=== PATIENT | male | born 1970 | race Caucasian/White ===

== ENCOUNTER 2024-06-12 03:22 | Observation (INO) | payer BC ==
[2024-06-12] MEDS ORDERED: NALOXONE 0.4 MG/ML 1 ML VIAL IV PRN (04:59)
--- NOTE | 2024-06-12 04:59 | ED ---
Abdominal Pain HPI - General Chief Complaint: Abdominal Pain Stated Complaint: Abd pain Source: EMS Mode of arrival: EMS Limitations: no limitations - History of Present Illness Initial Comments: 53-year-old male presents as a transfer from [facility]. Had right lower quadrant pain since [address]. Appendix not visualized. Fat stranding in the right lower quadrant with minimal free fluid in the pelvis but no abscess or free air. Laboratory studies demonstrated a white blood cell count of 13.9. Patient received Toradol, DIlaudid and a liter of fluid at the other facility. Still grades his pain as 6 out of 10. Patient was sent here for surgical consult. - Related Data Home Medications Medication Instructions Recorded Confirmed Celecoxib [CeleBREX] 100 mg PO BID PRN 06/12/24 06/12/24 Gabapentin 300 mg PO HS 06/12/24 06/12/24 Metoprolol Tartrate 25 mg PO BID 06/12/24 06/12/24 Naproxen Sodium [Aleve] 220 mg PO DAILY PRN 06/12/24 06/12/24 Rosuvastatin [Crestor] 20 mg PO HS 06/12/24 06/12/24 Previous Rx's Medication Instructions Recorded Amoxic-Pot Clav 500-125 mg 1 tab PO Q12HR #6 tab 06/13/24 [Augmentin 500-125 mg] HYDROcodone/APAP 5-325MG [[place] 1 tab PO Q6HR PRN 3 Days #12 tab 06/13/24 5-325] Lactulose [Cephulac] 10 gm PO DAILY PRN #300 ml 06/13/24 Allergies Allergy/AdvReac Type Severity Reaction Status Date / Time ceftriaxone [From Rocephin] AdvReac chills & Verified 06/12/24 07:11 jarrod Review of Systems ROS Statement: Those systems with pertinent positive or pertinent negative responses have been documented in the HPI. ROS Other: All systems not noted in ROS Statement are negative. Past Medical History Past Medical History: Hyperlipidemia, Hypertension History of Any Multi-Drug Resistant Organisms: None Reported Past Surgical History: Orthopedic Surgery Additional Past Surgical History / Comment(s): Vasectomy Past Psychological History: No Psychological Hx Reported Smoking Status: Never smoker Past Alcohol Use History: Occasional Past Drug Use History: Marijuana - Past Family History Father Family Medical History: Congestive Heart Failure (CHF), COPD, Diabetes Mellitus Additional Family Medical History / Comment(s): cabbag Mother Family Medical History: Cancer Additional Family Medical History / Comment(s): colon cancer at age 53. General Exam Limitations: no limitations General appearance: alert, in no apparent distress Head exam: Present: atraumatic, normocephalic, normal inspection Eye exam: Present: normal appearance, PERRL, EOMI. Absent: scleral icterus, conjunctival injection, periorbital swelling ENT exam: Present: normal exam, mucous membranes moist Neck exam: Present: normal inspection. Absent: tenderness, meningismus, lymphadenopathy Respiratory exam: Present: normal lung sounds bilaterally. Absent: respiratory distress, wheezes, rales, rhonchi, stridor Cardiovascular Exam: Present: regular rate, normal rhythm, normal heart sounds. Absent: systolic murmur, diastolic murmur, rubs, gallop, clicks GI/Abdominal exam: Present: soft, tenderness (rlq), normal bowel sounds. Absent: distended, guarding, rebound, rigid Extremities exam: Present: normal inspection, full ROM, normal capillary refill. Absent: tenderness, pedal edema, joint swelling, calf tenderness Back exam: Present: normal inspection Neurological exam: Present: alert, oriented X3, CN II-XII intact Psychiatric exam: Present: normal affect, normal mood Skin exam: Present: warm, dry, intact, normal color. Absent: rash Course Vital Signs 06/12/24 06/12/24 06/12/24 03:24 04:00 05:21 Temperature 99.1 F Pulse Rate 115 H 110 H Respiratory 18 18 Rate Blood Pressure 131/78 131/80 O2 Sat by Pulse 97 98 96 Oximetry Medical Decision Making - Medical Decision Making Was pt. sent in by a medical professional or institution (, PA, C 13 CATAPULT OPERATOR, urgent care, hospital, or snf...) When possible be specific @ -Patient sent from [facility] Did you speak to anyone other than the patient for history (EMS, parent, family, police, friend...)? What history was obtained from this source @ -I spoke with [facility] physician who transferred the patient Did you review nursing and triage notes (agree or disagree)? Why? @ -I reviewed and agree with nursing and triage notes Were old charts reviewed (outside hosp., previous admission, EMS record, old EKG, old radiological studies, urgent care reports/EKG's, snf records)? Report findings @ -I reviewed charts from [facility] Differential Diagnosis (chest pain, altered mental status, abdominal pain women, abdominal pain men, vaginal bleeding, weakness, fever, dyspnea, syncope, headach e, dizziness, GI bleed, back pain, seizure, CVA, palpatations, mental health, musculoskeletal)? @ -Differential Abdominal Pain Men: Appendicitis, cholecystitis, diverticulosis, ischemic bowel, pancreatitis, hepatitis, UTI, gastroenteritis, AAA, incarcerated hernia, bowel obstruction, constipation, inflammatory bowel, hepatitis, peptic ulcer disease, splenic infarction, perforated viscus, testicular torsion, this is not meant to be an all-inclusive list EKG interpreted by me (3pts min.). @ -Not done X-rays interpreted by me (1pt min.). @ -None done CT interpreted by me (1pt min.). @ -None done U/S interpreted by me (1pt. min.). @ -None done What testing was considered but not performed or refused? (CT, X-rays, U/S, labs)? Why? @ -None What meds were considered but not given or refused? Why? @ -None Did you discuss the management of the patient with other professionals (professionals i.e. , PA, C 13 CATAPULT OPERATOR, lab, RT, psych nurse, geriatric social work professor, supervisor gluing, teacher, family preservation officer, shoe caser)? Give summary @ -Spoke with Dr. St who will admit the patient Was smoking cessation discussed for >3mins.? @ -No Was critical care preformed (if so, how long)? @ -No Were there social determinants of health that impacted care today? How? (Homelessness, low income, unemployed, alcoholism, drug addiction, transportation, low edu. Level, literacy, decrease access to med. care, residential, rehab)? @ -No Was there de-escalation of care discussed even if they declined (Discuss DNR or withdrawal of care, Hospice)? DNR status @ -No What co-morbidities impacted this encounter? (DM, HTN, Smoking, COPD, CAD, Cancer, CVA, ARF, Chemo, Hep., AIDS, mental health diagnosis, sleep apnea, morbid obesity)? @ -None Was patient admitted / discharged? Hospital course, mention meds given and route, prescriptions, significant lab abnormalities, going to OR and other pertinent info. @ -Upon arrival patient seen and evaluated in room 1. Thorough history and physical exam was performed. I did review the packet from [facility]. I spoke with Dr. St who agreed to admit the patient. I did give him a low-dose of pain medications and started him on antibiotics. Patient admitted to the hospital in stable condition Undiagnosed new problem with uncertain prognosis? @ -No Drug Therapy requiring intensive monitoring for toxicity (Heparin, Nitro, Insulin, Cardizem)? @ -No Were any procedures done? @ -No Diagnosis/symptom? @ -Acute right lower quadrant abdominal pain, acute leukocytosis, fat stranding right lower quadrant Acute, or Chronic, or Acute on Chronic? @ -Acute Uncomplicated (without systemic symptoms) or Complicated (systemic symptoms)? @ -Complicated Side effects of treatment? @ -No Exacerbation, Progression, or Severe Exacerbation? @ -No Poses a threat to life or bodily function? How? (Chest pain, USA, VA, pneumonia, PE, COPD, DKA, ARF, appy, cholecystitis, CVA, Diverticulitis, Homicidal, Suicidal, threat to staff... and all critical care pts) @ -No - Lab Data Result diagrams: 06/13/24 03:44 06/13/24 03:44 Disposition Clinical Impression: RLQ abdominal pain, Leukocytosis Disposition: ADMITTED IP TO THIS [facility] Condition: Stable Is patient prescribed a controlled substance at d/c from ED?: No Time of Disposition: 04:59 Decision to Admit Reason: Admit from EC Decision Date: 06/12/24 Decision Time: 04:59
[2024-06-12] MEDS: SODIUM CHLORIDE 0.9% 1,000 ML IV SCH (05:20)
[2024-06-12] MEDS: MORPHINE SULFATE 4 MG/ML SYRINGE IV PRN (06:15)
[2024-06-12] MEDS: ONDANSETRON 4 MG/2 ML VIAL IVP PRN ×2 (06:15→19:20)
[2024-06-12] MEDS: SODIUM CHLORIDE 0.9% 500 ML 500 ML IV ONE ×2 (10:45→13:27)
[2024-06-12] MEDS: PIPERACILLIN-TAZOBACTAM 3.375 GM in SODIUM CHLORIDE 0.9% 100 ML IVPB SCH (10:51)
[2024-06-12] MEDS: IOPAMIDOL CONTRAST (ORAL USE) VIAL PO PRN (10:52)
[2024-06-12 11:42] LABS: Basophils % (A) 0 %; Eosinophils % (A) 0 %; HCT 40.1 % (39.0-53.0); HGB 13.1 gm/dL (13.0-17.5); Lymphocytes # (A) 1.2 k/uL (1.0-4.8); Lymphocytes % (A) 9 %; MCH 30.4 pg (25.0-35.0); MCHC 32.8 g/dL (31.0-37.0); MCV 92.8 fL (80.0-100.0); Mean Platelet Volume 8.2; Monocytes # (A) 1.1 k/uL (0-1.0); Monocytes % (A) 8 %; Neutrophils # (A) 11.6 k/uL (1.3-7.7); Neutrophils % (A) 81 %; Platelet Count 251 k/uL (150-450); RBC 4.32 m/uL (4.30-5.90); RDW 13.4 % (11.5-15.5); WBC 14.3 k/uL (3.8-10.6)
--- NOTE | 2024-06-12 11:42 | P.GSHP ---
History of Present Illness H&P Date: 06/12/24 CHIEF COMPLAINT: Right lower quadrant abdominal pain HISTORY OF PRESENT ILLNESS: This is a 53-year-old male who presented to the hospital with complaints of right lower quadrant abdominal pain that started at 6 PM last night. Patient reports the pain was sharp and severe. He was having fevers. He did report some nausea. He went to [facility] and had a CT scan of the abdomen with IV contrast that reported appendix is not visualized. There is fat stranding in the right lower quadrant with minimal free fluid in the pelvis but no abscess or free air. She did have elevated white count. He was transferred from [facility] to be evaluated by surgeon. Patient continues to complain of pain mostly in the right lower quadrant and into the right side of the abdomen. He has been mildly tachycardic. Patient denies any prior abdominal surgeries. Denies any cardiac history. Patient does report having a colonoscopy about 3 years ago and reports that that colonoscopy was normal. Prior colonoscopies did have colon polyps. Family history includes mother with colon cancer. PAST MEDICAL HISTORY: See below PAST SURGICAL HISTORY: See below MEDICATIONS: See below ALLERGIES: See below SOCIAL HISTORY: No illicit drug use. REVIEW OF SYSTEMS: CONSTITUTIONAL: Denies fever or chills. HEENT: Denies blurred vision, vision changes, or eye pain. Denies hemoptysis CARDIOVASCULAR: Denies chest pain or pressure. RESPIRATORY: No shortness of breath. GASTROINTESTINAL: See HPI for pertinent findings HEMATOLOGIC: Denies bleeding disorders. GENITOURINARY: Denies any blood in urine or increased urinary frequency. SKIN: Denies pruitis. Denies rash. PHYSICAL EXAM: VITAL SIGNS: Reviewed GENERAL: Well-developed in no acute distress. HEENT: No sclera icterus. Extraocular movements grossly intact. Moist buccal mucosa. Head is atraumatic, normocephalic. No nasal drainage. ABDOMEN: Soft. Obese. Nondistended. Tenderness right lower quadrant and right side of abdomen NEUROLOGIC: Alert and oriented. Cranial nerves II through XII grossly intact. LABORATORY DATA: WBC at [facility] was 13 IMAGING: CT scan findings as stated above ASSESSMENT: 1. Right lower quadrant abdominal pain with CT scan evidence of fat stranding in the right lower quadrant and leukocytosis. Concerns for acute appendicitis PLAN: -CT scan abdomen pelvis with oral and IV contrast ordered for further evaluation of right lower quadrant abdominal pain -Follow-up on repeat labs -Zosyn added -Continue IV fluids -Normal saline 500 mL fluid bolus ordered before and after CAT scan due to CT scan being given with IV contrast -Keep patient n.p.o. for possible surgical intervention. Further recommendations forthcoming per surgeon Physician Journeyman Level Acoustic Analyst note has been reviewed by physician. Signing provider agrees with the documented findings, assessment, and plan of care. 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,bursitis bilateral knees History of Any Multi-Drug Resistant Organisms: None Reported Past Surgical History: Orthopedic Surgery Additional Past Surgical History / Comment(s): Vasectomy, 2 left rotator cuff r epair, 1 right rotator repair Past Anesthesia/Blood Transfusion Reactions: No Reported Reaction Past Psychological History: No Psychological Hx Reported Smoking Status: Never smoker Past Alcohol Use History: Occasional Past Drug Use History: Marijuana - Past Family History Father Family Medical History: Congestive Heart Failure (CHF), COPD, Diabetes Mellitus Additional Family Medical History / Comment(s): cabbag Mother Family Medical History: Cancer Additional Family Medical History / Comment(s): colon cancer at age 53. Medications and Allergies Home Medications Medication Instructions Recorded Confirmed Type Celecoxib [CeleBREX] 100 mg PO BID PRN 06/12/24 06/12/24 History Gabapentin 300 mg PO HS 06/12/24 06/12/24 History Metoprolol Tartrate 25 mg PO BID 06/12/24 06/12/24 History Naproxen Sodium [Aleve] 220 mg PO DAILY PRN 06/12/24 06/12/24 History Rosuvastatin [Crestor] 20 mg PO HS 06/12/24 06/12/24 History predniSONE [Deltasone] 40 mg PO DIRECTED 06/12/24 06/12/24 History Allergies Allergy/AdvReac Type Severity Reaction Status Date / Time ceftriaxone [From Rocephin] AdvReac chills & Verified 06/12/24 07:11 shaky Surgical - Exam Osteopathic Statement: *. No significant issues noted on an osteopathic structural exam other than those noted in the History and Physical/Consult. Vital Signs Temp Pulse Resp BP Pulse Ox 99.1 F 115 H 18 131/78 97 06/12/24 03:24 06/12/24 03:24 06/12/24 03:24 06/12/24 03:24 06/12/24 03:24 Results - Labs 06/12/24 11:03 06/12/24 11:03 Assessment and Plan Assessment: 53-year-old male with acute appendicitis nothing by mouth IV fluids pain control going to the operating room tonight Okay for regular diet after surgery
[2024-06-12 12:07] LABS: ALT 23 U/L (4-49); AST 15 U/L (17-59); African American GFR (CKD) >90 (>60 ml/min/1.73 sqM); Albumin 3.5 g/dL (3.5-5.0); Albumin/Globulin Ratio 1.4; Alkaline Phosphatase 44 U/L (38-126); Anion Gap 7 mmol/L; Blood Urea Nitrogen 22 mg/dL (9-20); Calcium 8.5 mg/dL (8.4-10.2); Carbon Dioxide 20 mmol/L (22-30); Chloride 110 mmol/L (98-107); Globulin 2.5 g/dL; Glucose 158 mg/dL (74-99); Magnesium 1.7 mg/dL (1.6-2.3); Non-African American GFR(CKD) >90 (>60 ml/min/1.73 sqM); Potassium 3.9 mmol/L (3.5-5.1); Sodium 137 mmol/L (137-145); Total Bilirubin 0.7 mg/dL (0.2-1.3)
--- NOTE | 2024-06-12 14:21 | CT ---
EXAMINATION TYPE: CT abdomen pelvis w con DATE OF EXAM: 06/12/2024 1:35 PM COMPARISON: None. CLINICAL INDICATION: Male, 53 years old with history of RLQ abdominal pain, RLQ pain TECHNIQUE: Axial images were obtained from above the diaphragm to the pubic rami in the axial plane a t 5 mm thick sections. Reconstructed images are reviewed on the computer in the coronal plane. CONTRAST: 100 mL of Isovue 300. Study performed with Oral Contrast DLP: 3187.5 mGycm, Automated exposure control for dose reduction was used. FINDINGS: Limited CT sections are obtained the lung bases. There is some right dependent lung base atelectasis .. CT ABDOMEN: Liver: There is moderate fatty infiltration liver. No discrete masses Spleen: Normal Pancreas: Normal Adrenal glands: The adrenal glands are normal. Gallbladder: Normal Kidneys: No masses are evident. No hydronephrosis is present. No cysts are present. Delayed images were obtained through the kidneys, which remain unremarkable. Aorta: Vascular calcification is within the aorta. Inferior vena cava: Normal. CT PELVIS: Scattered diverticuli within the sigmoid colon. No acute diverticulitis evident. There are loops of b owel which are incompletely distended or lack oral contrast limiting their evaluation. Appendix: The appendix appears nondilated. However, there may be some mild inflammatory changes in th e right lower quadrant and the appendix as well as adjacent cecum. No abscess formation is evident. N o free air is identified. Clinical management of any suspected appendicitis. Urinary bladder: Normal. Genitourinary structures: Prostate calcifications present. Mild hypertrophy may be present. Osseous structures: No suspicious lytic or sclerotic lesions. IMPRESSION: 1. Inflammatory changes within the mesentery in the right lower quadrant. This is adjacent to a norm al appearing caliber appendix. Clinical management suspected appendicitis. 2. Moderate fatty infiltration of the liver. 3. Mild dependent atelectasis right posterior lung base. 4. Diverticulosis without acute diverticulitis sigmoid colon. [facility], Workstation: [facility], 06/12/2024 2:19 PM
--- NOTE | 2024-06-12 15:45 | P.CONS ---
History of Present Illness - Reason for Consult Consult date: 06/12/24 Medical management abdominal pain concern for appendicitis - History of Present Illness This is a pleasant 53-year-old male who presented to [facility] from [facility] with intense severe abdominal pain in the right lower quadrant that came on abruptly. Patient did undergo CT there although appendix was not visua lized and was a poor study. Patient evaluated by general surgery and admitted to surgery today and repeat CT is ordered. Concerns for appendicitis and patient is currently NPO. Patient reports he follows with Dr. Islas in the outpatient setting with a past medical history of hypertension hyperlipidemia and reports to having bowel issues although denies any surgical interventions or recent surgeries. Patient white count is noted to be elevated at 14.3, hemoglobin is stable at 13.1, sodium 137, potassium 3.9, BUN is 22 with a creatinine of 0.63, magnesium 1.7, total bili 0.7. Patient was placed on supportive supplemental oxygen of 2 L and reports does not wear this at home although reports due to his significant abdominal pain having difficulty taking deep breaths and feels short of breath. Will provide incentive spirometer for pre and postsurgical interventions. Patient was also empirically started on antibiotics in the form of Zosyn per surgery with concerns of possible acute appendicitis. REVIEW OF SYSTEMS: CONSTITUTIONAL: No fever, no malaise, no fatigue. HEENT: No recent visual problems or hearing problems. Denied any sore throat. CARDIOVASCULAR: No chest pain, orthopnea, PND, no palpitations, no syncope. PULMONARY: Reports intermittent shortness of breath, no cough, no hemoptysis. GASTROINTESTINAL: No diarrhea, no nausea, no vomiting, reports severe abdominal pain in the right lower quadrant. NEUROLOGICAL: No headaches, no weakness, no numbness. HEMATOLOGICAL: Denies any bleeding or petechiae. GENITOURINARY: Denies any burning micturition, frequency, or urgency. MUSCULOSKELETAL/RHEUMATOLOGICAL: Denies any joint pain, swelling, or any muscle pain. ENDOCRINE: Denies any polyuria or polydipsia. The rest of the 14-point review of systems is negative. PHYSICAL EXAMINATION: GENERAL: The patient is alert and oriented x3, not in any acute distress. Well developed, appears older than stated age, morbidly obese HEENT: Pupils are round and equally reacting to light. EOMI. No scleral icterus. No conjunctival pallor. Normocephalic, atraumatic. No pharyngeal erythema. No thyromegaly. CARDIOVASCULAR: S1 and S2 muffled PULMONARY: Diminished breath sounds bilaterally otherwise chest is clear to auscultation, no wheezing or crackles. ABDOMEN: Soft, obese, tender, nondistended, normoactive bowel sounds. No palpable organomegaly. MUSCULOSKELETAL: No joint swelling or deformity. EXTREMITIES: No cyanosis, clubbing, or pedal edema. NEUROLOGICAL: Gross neurological examination did not reveal any focal deficits. SKIN: No rashes. Assessment: Abdominal pain with concerns of possible acute appendicitis Leukocytosis, secondary to above History of hypertension History of hyperlipidemia History of GERD History of degenerative joint disease in the back Occasional THC use Morbid obesity with a BMI of 46.2 GI prophylaxis DVT prophylaxis Full code Plan: Patient was sent here from [facility] with concerns of severe right lower quadrant abdominal pain for surgical evaluation. Patient admitted under surgery with concerns of possible acute appendicitis Patient remains n.p.o. and repeat CT is ordered showing inflammatory changes within the mesentery in the right lower quadrant adjacent to a normal-appearing caliber appendix clinical management suspected appendicitis, moderate fatty infiltration of the liver, mild dependent atelectasis right posterior lung place, Diverticulosis without acute diverticulitis Patient was started on Zosyn per surgery and recommend follow-up labs to monitor white count Patient reports has issues with constipation and bowel issues, will add as needed bowel regimen as well as scheduled. Currently n.p.o. The impression and plan of care has been dictated by Elizabeth Valenzuela, Nurse Practitioner as directed. Dr. Darío MD I have performed a history and examination and MDM of this patient, discussed the same with the dictator, and agree with the dictator's assessment and plan a s written ,documented as a scribe. Based on total visit time, I have performed more than 50% of the visit. 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,bursitis bilateral knees History of Any Multi-Drug Resistant Organisms: None Reported Past Surgical History: Orthopedic Surgery Additional Past Surgical History / Comment(s): Vasectomy, 2 left rotator cuff repair, 1 right rotator repair Past Anesthesia/Blood Transfusion Reactions: No Reported Reaction Past Psychological History: No Psychological Hx Reported Smoking Status: Never smoker Past Alcohol Use History: Occasional Past Drug Use History: Marijuana - Past Family History Father Family Medical History: Congestive Heart Failure (CHF), COPD, Diabetes Mellitus Additional Family Medical History / Comment(s): cabbag Mother Family Medical History: Cancer Additional Family Medical History / Comment(s): colon cancer at age 53. Medications and Allergies Home Medications Medication Instructions Recorded Confirmed Type Celecoxib [CeleBREX] 100 mg PO BID PRN 06/12/24 06/12/24 History Gabapentin 300 mg PO HS 06/12/24 06/12/24 History Metoprolol Tartrate 25 mg PO BID 06/12/24 06/12/24 History Naproxen Sodium [Aleve] 220 mg PO DAILY PRN 06/12/24 06/12/24 History Rosuvastatin [Crestor] 20 mg PO HS 06/12/24 06/12/24 History predniSONE [Deltasone] 40 mg PO DIRECTED 06/12/24 06/12/24 History Allergies Allergy/AdvReac Type Severity Reaction Status Date / Time ceftriaxone [From Rocephin] AdvReac chills & Verified 06/12/24 07:11 shaky Physical Exam Vitals: Vital Signs Temp Pulse Pulse Pulse Resp BP BP 06/12/24 07:48 06/12/24 07:05 98.7 F 110 H 17 145/89 06/12/24 06:05 98.8 F 106 H 18 139/86 06/12/24 05:21 110 H 18 131/80 06/12/24 04:00 06/12/24 03:24 99.1 F 115 H 18 131/78 Pulse Ox 06/12/24 07:48 96 06/12/24 07:05 96 06/12/24 06:05 95 06/12/24 05:21 96 06/12/24 04:00 98 06/12/24 03:24 97 Intake and Output 06/11/24 06/12/24 06/12/24 22:59 06:59 14:59 Other: Weight 158.757 kg Results CBC & Chem 7: 06/12/24 11:03 06/12/24 11:03
[2024-06-12] MEDS: FAMOTIDINE 20 MG/2 ML VIAL IV STA (19:20)
[2024-06-12] MEDS: DEXAMETHASONE SOD PHOSPHATE 4 MG/ML 1 ML VIAL IVP STA (19:20)
[2024-06-12] MEDS ORDERED: MIDAZOLAM 2 MG/2 ML VIAL ONE (19:40)
[2024-06-12] MEDS ORDERED: NEOSTIGMINE 1 MG/ML 10 ML VIAL ONE (19:40)
[2024-06-12] MEDS ORDERED: fentaNYL (PF) 50 MCG/ML 2 ML AMP ONE (19:40)
[2024-06-12] MEDS ORDERED: LABETALOL 5 MG/ML VIAL MDV ONE (19:40)
[2024-06-12] MEDS ORDERED: SUCCINYLCHOLINE CHLORIDE 200 MG/10 ML VIAL IV ONE (19:40)
[2024-06-12] MEDS ORDERED: PROPOFOL 10 MG/ML 20 ML VIAL IV ONE (19:40)
[2024-06-12] MEDS ORDERED: ROCURONIUM 10 MG/ML (5 ML VIAL) IV ONE (19:40)
[2024-06-12] MEDS ORDERED: GLYCOPYRROLATE 0.2 MG/ML 2 ML VIAL ONE (19:40)
[2024-06-12] MEDS ORDERED: KETOROLAC 30 MG/ML 1 ML VIAL ONE (19:40)
[2024-06-12] MEDS: IV FLUID CONTINUATION 1,000 ML IV ONE (19:42)
[2024-06-12] MEDS: LACTATED RINGERS 1,000 ML IV ONE ×2 (19:50→20:28)
[2024-06-12] MEDS: BUPIVACAINE (PF) 0.25% 30 ML VIAL SQ ONE (20:03)
--- NOTE | 2024-06-12 21:59 | P.OP ---
Date of Procedure: 06/12/24 Preoperative Diagnosis: appendicitis Postoperative Diagnosis: appendicitis Procedure(s) Performed: travel specialist scopic appendectomy Anesthesia: SOFYA Surgeon: Tom [facility] Pathology: other (appendix) Condition: stable Disposition: PACU Indications for Procedure: appendicitis Operative Findings: by stranding the significant amount of edema with inflamed appendix Description of Procedure: patient was brought to the operating suite where he was cleaned and draped in sterile fashion a timeout was performed and everyone agreed with the information sided. Next incision was made in the left upper quadrant with the #15 blade and a 5 mm Visiport was used to gain access into the abdomen. 2 more working ports were placed one in the infraumbilical area and one in the suprapubic area. We placed the patient in Trendelenburg with right side up. We encountered a large amount of fat which was very hard to see the colon and appendix. After manipulation of the colon we were able to see the appendix which was dissected free with blunt dissection and then grasped with a grasper lifted and a LigaSure device with the used to take down the meso Once this was freed the appendix was then grasped and resected using a 45 Endo SILVIA purple stapler. The staple was inspected and no bleeding was observed. This was placed in Endo Catch bag and removed out of the abdomen via the umbilical incision. The incisions were then closed using 4-0 Vicryl suture in interrupted fashion. Patient was then transported to PACU in stable conditionappendix.
[2024-06-12] MEDS: METOPROLOL TARTRATE 25 MG TAB PO SCH (23:40)
[2024-06-12] MEDS: PANTOPRAZOLE 40 MG/10 ML VIAL IVP SCH (23:40)
[2024-06-13] MEDS: ACETAMINOPHEN TAB 325 MG TAB PO PRN (08:44)
[2024-06-13 09:13] LABS: Basophils # (A) 0.03 X 10*3/uL (0.00-0.10); Basophils % (A) 0.2 %; Eosinophils # (A) 0 X 10*3/uL (0.04-0.35); Eosinophils % (A) 0 %; HCT 39.1 % (39.6-50.0); HGB 12.6 g/dL (13.0-17.0); Lymphocytes # (A) 0.67 X 10*3/uL (0.90-5.00); MCH 30.3 pg (27.0-32.0); MCHC 32.2 g/dL (32.0-37.0); Mean Platelet Volume 10.9 FL (9.5-12.2); Monocytes # (A) 0.92 X 10*3/uL (0.20-1.00); Monocytes % (A) 6.9 %; NRBC Per 100 WBC 0 X 10*3/uL (0.00-0.01); Neutrophils # (A) 11.67 X 10*3/uL (1.80-7.70); Neutrophils % (A) 87.5 %; Platelet Count 224 X 10*3/uL (140-440); RBC 4.16 X 10*6/uL (4.40-5.60); RDW 13.5 % (11.5-14.5); WBC 13.35 X 10*3/uL (4.50-10.00)
[2024-06-13 09:33] LABS: BUN/Creat Ratio 18.17 Ratio (12.00-20.00); Blood Urea Nitrogen 10.9 mg/dL (9.0-27.0); Calcium 8.5 mg/dL (8.7-10.3); Carbon Dioxide 20.7 mmol/L (21.6-31.8); Chloride 105 mmol/L (96-109); Glucose 196 mg/dL (70-110); Potassium 4.4 mmol/L (3.5-5.5); Sodium 135 mmol/L (135-145)
[2024-06-13] MEDS: polyethylene glycoL 3350 17 GM POWD.PACK PO STA (11:10)
[2024-06-13] MEDS: BENZOCAINE/MENTHOL LOZENG 1 EACH LOZENGE MUCOUS MEM PRN (11:51)
[2024-06-13] MEDS: LACTULOSE 20 GM/30 ML CUP PO SCH (12:51)
[2024-06-13] MEDS: SENNOSIDES 8.6 MG TAB PO SCH (12:51)
--- NOTE | 2024-06-13 13:12 | P.DS ---
Providers Date of admission: 06/12/24 05:01 Expected date of discharge: 06/13/24 Attending physician: Will St DO Consults: 06/12/24 04:59 Consult Physician Urgent Consulting Provider: Sidra Gonzalez Consult Reason/Comments: rlq pain, leukocytosis Do you want consulting provider notified?: Yes Primary care physician: Dar Islas MD Hospital Course: Discharge diagnosis 1. Acute appendicitis Hospital course This is a 53-year-old male transfer from [facility] with right lower quadrant abdominal pain. Patient was found to have evidence of acute append icitis. Patient is status post laparoscopic appendectomy. Patient tolerated surgery well. His pain is controlled. He is tolerating diet. He is afebrile. He has been up and ambulating. He is having flatus. White count is trending down. He is stable for discharge. Please refer to chart for any further details. Physician Licensed Direct Entry Midwife note has been reviewed by physician. Signing provider agrees with the documented findings, assessment, and plan of care. Attestation Patient seen and examined at bedside. Doing well since his surgery. He is postop day #1 laparoscopic appendectomy. He is tolerating diet. States pain is well-controlled. He is stable for discharge from surgical perspective. Will discharge with oral antibiotics and pain control. May Lr DO Patient Condition at Discharge: Stable Plan - Discharge Summary New Discharge Prescriptions: New Amoxic-Pot Clav 500-125 mg [Augmentin 500-125 mg] 1 tab PO Q12HR #6 tab HYDROcodone/APAP 5-325MG [[place] 5-325] 1 tab PO Q6HR PRN 3 Days #12 tab PRN Reason: Pain Lactulose [Cephulac] 10 gm PO DAILY PRN #300 ml PRN Reason: Constipation Continue Rosuvastatin [Crestor] 20 mg PO HS Gabapentin 300 mg PO HS Naproxen Sodium [Aleve] 220 mg PO DAILY PRN PRN Reason: Pain Celecoxib [CeleBREX] 100 mg PO BID PRN PRN Reason: Pain Metoprolol Tartrate 25 mg PO BID Discontinued predniSONE [Deltasone] 40 mg PO DIRECTED Discharge Medication List Celecoxib [CeleBREX] 100 mg PO BID PRN 06/12/24 [History] Gabapentin 300 mg PO HS 06/12/24 [History] Metoprolol Tartrate 25 mg PO BID 06/12/24 [History] Naproxen Sodium [Aleve] 220 mg PO DAILY PRN 06/12/24 [History] Rosuvastatin [Crestor] 20 mg PO HS 06/12/24 [History] Amoxic-Pot Clav 500-125 mg [Augmentin 500-125 mg] 1 tab PO Q12HR #6 tab 06/13/24 [Rx] HYDROcodone/APAP 5-325MG [[place] 5-325] 1 tab PO Q6HR PRN 3 Days #12 tab 06/13/24 [Rx] Lactulose [Cephulac] 10 gm PO DAILY PRN #300 ml 06/13/24 [Rx] Follow up Appointment(s)/Referral(s): Tom Warren DO [Doctor of Osteopathic Medicine] - 06/25/24 9:45 am (Please bring packet that will be mailed out to you, Insurance card, ID and list of medications. Appointment will be at the [place] Office.) Dar Islas MD [Primary Care Provider] - 1-2 days Ambulatory/Diagnostic Orders: Complete Blood Count w/diff [LAB.AMB] Time Frame: 3 Days, Location: None Selected Patient Instructions/Handouts: Laparoscopic Appendectomy (DC) Activity/Diet/Wound Care/Special Instructions: No driving while taking [place] No lifting over 10 pounds You may shower. No soaking or tub baths for 2 weeks Very light activity until you are reevaluated at your follow up appointment with your surgeon Discharge Disposition: HOME SELF-CARE
--- NOTE | 2024-06-13 13:40 | P.PN ---
Subjective Progress Note Date: 06/13/24 - Reason for Consult Consult date: 06/12/24 Medical management abdominal pain concern for appendicitis - History of Present Illness This is a pleasant 53-year-old male who presented to [facility] from [facility] with intense severe abdominal pain in the right lower quadrant that came on abruptly. Patient did undergo CT there although appendix was not visualized and was a poor study. Patient evaluated by general surgery and ad mitted to surgery today and repeat CT is ordered. Concerns for appendicitis and patient is currently NPO. Patient reports he follows with Dr. Islas in the outpatient setting with a past medical history of hypertension hyperlipidemia and reports to having bowel issues although denies any surgical interventions or recent surgeries. Patient white count is noted to be elevated at 14.3, hemoglobin is stable at 13.1, sodium 137, potassium 3.9, BUN is 22 with a creatinine of 0.63, magnesium 1.7, total bili 0.7. Patient was placed on supportive supplemental oxygen of 2 L and reports does not wear this at home although reports due to his significant abdominal pain having difficulty taking deep breaths and feels short of breath. Will provide incentive spirometer for pre and postsurgical interventions. Patient was also empirically started on antibiotics in the form of Zosyn per surgery with concerns of possible acute appendicitis. 06/13/2024 Patient is seen in follow-up status post appendectomy with general surgery yesterday evening. Patient reports to feeling better although continues with some abdominal discomfort. Patient tolerating diet thus far with no reported nausea or vomiting. Patient does have significant issues with bowel habits including constipation and recommend to continue with MiraLAX daily. Will add lactulose as needed to the regimen as well. Patient instructed to follow-up with primary care provider and continue using incentive spirometer even at home at least 10 times every hour while awake. Patient to follow-up with general surgery outpatient and also recommend monitoring closely for any further fevers. Review of systems: Constitutional: No reports of fatigue, fever, or chills Cardiovascular: No reports of chest pain or palpitations Respiratory: No reports of shortness of breath or cough GI: No reports of nausea, vomiting, or diarrhea, reports mild abdominal discomfort : No reports of dysuria or retention Neurovascular: No reports of weakness or numbness All medications have been reviewed for ready for Dr. Starr The rest of the 14-point review of systems is negative. PHYSICAL EXAMINATION: GENERAL: The patient is alert and oriented x3, not in any acute distress. Well developed, appears older than stated age, morbidly obese HEENT: Pupils are round and equally reacting to light. EOMI. No scleral icterus. No conjunctival pallor. Normocephalic, atraumatic. No pharyngeal erythema. No thyromegaly. CARDIOVASCULAR: S1 and S2 muffled PULMONARY: Diminished breath sounds bilaterally otherwise chest is clear to auscultation, no wheezing or crackles. ABDOMEN: Soft, obese, less tender, nondistended, normoactive bowel sounds. No palpable organomegaly. MUSCULOSKELETAL: No joint swelling or deformity. EXTREMITIES: No cyanosis, clubbing, or pedal edema. NEUROLOGICAL: Gross neurological examination did not reveal any focal deficits. SKIN: No rashes. 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 Patient admitted under surgery with concerns of possible acute appendicitis Patient is status post laparoscopic appendectomy and is being considered for discharge today. Patient reports some discomfort in the abdomen although is tolerating diet and reports to feeling slightly improved from yesterday. Recommend to continue with MiraLAX daily and will add as needed lactulose as patient reports has significant issues with bowel habits and has been taken MiraLAX daily outpatient. White count is trending down and encouraged patient to follow-up outpatient and monitor for any further fevers and repeat labs in the next few days. Patient is medically stable once cleared by general surgery for discharge. Thank you kindly for this consultation. We will continue to follow during hospitalization with general surgery. The impression and plan of care has been dictated by Elizabeth Valenzuela, Nurse Practitioner as directed. Dr. Darío MD I have performed a history and examination and MDM of this patient, discussed the same with the dictator, and agree with the dictator's assessment and plan as written ,documented as a scribe. Based on total visit time, I have performed more than 50% of the visit. Objective - Vital Signs Vital signs: Vital Signs Temp 99.5 F 06/13/24 02:00 Pulse 97 06/13/24 02:05 Resp 19 06/13/24 02:00 BP 144/94 06/13/24 02:05 Pulse Ox 92 L 06/13/24 07:39 FiO2 Intake & Output 06/12/24 06/13/24 06/13/24 18:59 06:59 18:59 Intake Total 2049 Output Total 510 Balance 1540 Weight 158.757 kg Intake: IV 2049 Output: Urine 500 Estimated Blood Loss 10 Other: # Voids 3 1 - Labs CBC & Chem 7: 06/13/24 03:44 06/13/24 03:44 Labs: Abnormal Lab Results - Last 24 Hours (Table) 06/12/24 06/12/24 Range/Units 11:03 11:03 WBC 14.3 H (3.8-10.6) k/uL Neutrophils # 11.6 H (1.3-7.7) k/uL Monocytes # 1.1 H (0-1.0) k/uL Chloride 110 H (98-107) mmol/L Carbon Dioxide 20 L (22-30) mmol/L BUN 22 H (9-20) mg/dL Creatinine 0.63 L (0.66-1.25) mg/dL Glucose 158 H (74-99) mg/dL AST 15 L (17-59) U/L Total Protein 6.0 L (6.3-8.2) g/dL
[2024-06-13 14:46] VITALS: BP 120/67; PULSE 81; RESP 17; TEMP 98.6
[2024-06-13] MEDS: HYDROcodone/APAP 5-325MG 1 EACH TAB PO PRN (15:03)
[2024-06-14] MEDS ORDERED: polyethylene glycoL 3350 17 GM POWD.PACK PO SCH (09:00)
== END 2024-06-13 15:15 | disposition home or self-care (01) ==
LOC: EC 03:22 → 6NMEDSUR 05:01
PROVIDERS: ADMIT Surgery; ATTEND Surgery
DX: K35.80 Unspecified acute appendicitis (principal); I10 Essential (primary) hypertension; E78.5 Hyperlipidemia, unspecified; K21.9 Gastro-esophageal reflux disease without esophagitis; K59.00 Constipation, unspecified; K57.30 Diverticulosis of large intestine without perforation or abscess without bleeding; J98.11 Atelectasis; K76.0 Fatty (change of) liver, not elsewhere classified; R00.0 Tachycardia, unspecified; E66.01 Morbid (severe) obesity due to excess calories; Z68.42 Body mass index [BMI] 45.0-49.9, adult; M47.9 Spondylosis, unspecified; Z79.1 Long term (current) use of non-steroidal anti-inflammatories (NSAID); Z79.899 Other long term (current) drug therapy; Z88.1 Allergy status to other antibiotic agents; Z86.0100 Personal history of colon polyps, unspecified; Z80.0 Family history of malignant neoplasm of digestive organs
CPT/HCPCS: 44970; 96376; 96374; 96375; 99285; 94760 ×2; 88304; 80053; 80048; 83735; 85025 ×2; 74177; G0378 ×2; J2543 ×2; J2250; J0330; J2270 ×2; J1100; J2710; J2405 ×2; J3010; J1885; J3490; J2704; Q9967; J0665; J1920; J1596; J2470 ×2

== ENCOUNTER 2024-06-18 22:48 | Observation (INO) | payer BC ==
[2024-06-18] MEDS ORDERED: NALOXONE 0.4 MG/ML 1 ML VIAL IV PRN (23:03)
[2024-06-18] MEDS ORDERED: HYDROmorphone 0.5 MG/0.5 ML SYRINGE IVP PRN (23:03)
--- NOTE | 2024-06-18 23:03 | ED ---
General Adult HPI - General Stated complaint: ABD Pain, Abcess Time Seen by Provider: 06/18/24 22:49 Source: patient, EMS, RN notes reviewed, old records reviewed Mode of arrival: EMS Limitations: no limitations - History of Present Illness Initial comments: This is a 53-year-old male presents emergency department chief complaint of abdominal pain. Patient was seen at [facility] for increasing abdominal pain. Patient had prior appendectomy by Dr. Warren [address] showed questionable early developing abscess. Patient states she has had increasing pain for last 24 hours no reports of fever patient was discharged on 4 days of Augmentin he states he did complete these antibiotics. No dysuria no segment change in bowel habits. - Related Data Home Medications Medication Instructions Recorded Confirmed Celecoxib [CeleBREX] 100 mg PO BID PRN 06/12/24 06/12/24 Gabapentin 300 mg PO HS 06/12/24 06/12/24 Metoprolol Tartrate 25 mg PO BID 06/12/24 06/12/24 Naproxen Sodium [Aleve] 220 mg PO DAILY PRN 06/12/24 06/12/24 Rosuvastatin [Crestor] 20 mg PO HS 06/12/24 06/12/24 Previous Rx's Medication Instructions Recorded Amoxic-Pot Clav 500-125 mg 1 tab PO Q12HR #6 tab 06/13/24 [Augmentin 500-125 mg] HYDROcodone/APAP 5-325MG [[place] 1 tab PO Q6HR PRN 3 Days #12 tab 06/13/24 5-325] Lactulose [Cephulac] 10 gm PO DAILY PRN #300 ml 06/13/24 Allergies Allergy/AdvReac Type Severity Reaction Status Date / Time ceftriaxone [From Rocephin] AdvReac chills & Verified 06/12/24 07:11 jarrod Review of Systems ROS Statement: Those systems with pertinent positive or pertinent negative responses have been documented in the HPI. ROS Other: All systems not noted in ROS Statement are negative. Past Medical History Past Medical History: Hyperlipidemia, Hypertension Additional Past Medical History / Comment(s): DJD in back,bursitis bilateral knees History of Any Multi-Drug Resistant Organisms: None Reported Past Surgical History: Orthopedic Surgery Additional Past Surgical History / Comment(s): Vasectomy Past Anesthesia/Blood Transfusion Reactions: No Reported Reaction Past Psychological History: No Psychological Hx Reported Smoking Status: Never smoker Past Alcohol Use History: Occasional Past Drug Use History: Marijuana - Past Family History Father Family Medical History: Congestive Heart Failure (CHF), COPD, Diabetes Mellitus Additional Family Medical History / Comment(s): cabbag Mother Family Medical History: Cancer Additional Family Medical History / Comment(s): colon cancer at age 53. General Exam General appearance: alert, in no apparent distress Head exam: Present: atraumatic, normocephalic, normal inspection ENT exam: Present: normal exam, mucous membranes moist Neck exam: Present: normal inspection, full ROM. Absent: tenderness, meningismus, lymphadenopathy Respiratory exam: Present: normal lung sounds bilaterally. Absent: respiratory distress, wheezes, rales, rhonchi, stridor Cardiovascular Exam: Present: regular rate, normal rhythm, normal heart sounds. Absent: systolic murmur, diastolic murmur, rubs, gallop, clicks GI/Abdominal exam: Present: soft, tenderness, normal bowel sounds. Absent: distended, guarding, rebound, rigid Back exam: Absent: CVA tenderness (R), CVA tenderness (L) Medical Decision Making - Medical Decision Making Was pt. sent in by a medical professional or institution (, PA, ELECTRONIC DATA PROCESSING AUDITOR, urgent care, hospital, or senior living...) When possible be specific @ -[facility] Did you speak to anyone other than the patient for history (EMS, parent, family, police, friend...)? What history was obtained from this source @ -No Did you review nursing and triage notes (agree or disagree)? Why? @ -I reviewed and agree with nursing and triage notes Were old charts reviewed (outside hosp., previous admission, EMS record, old EKG, old radiological studies, urgent care reports/EKG's, senior living records)? Report findings @ -Reviewed records from [facility] including CT laboratory studies CT showing abscess Differential Diagnosis (chest pain, altered mental status, abdominal pain women, abdominal pain men, vaginal bleeding, weakness, fever, dyspnea, syncope, headache, dizziness, GI bleed, back pain, seizure, CVA, palpatations, mental health, musculoskeletal)? @ -Differential Abdominal Pain Men: Appendicitis, cholecystitis, diverticulosis, ischemic bowel, pancreatitis, hepatitis, UTI, gastroenteritis, AAA, incarcerated hernia, bowel obstruction, constipation, inflammatory bowel, hepatitis, peptic ulcer disease, splenic infarction, perforated viscus, testicular torsion, this is not meant to be an all-inclusive list EKG interpreted by me (3pts min.). @ -None X-rays interpreted by me (1pt min.). @ -None done CT interpreted by me (1pt min.). @ -None done U/S interpreted by me (1pt. min.). @ -None done What testing was considered but not performed or refused? (CT, X-rays, U/S, labs)? Why? @ -None What meds were considered but not given or refused? Why? @ -None Did you discuss the management of the patient with other professionals (professionals i.e. , PA, ELECTRONIC DATA PROCESSING AUDITOR, lab, RT, psych nurse, clinical social work aide, bookbinder apprentice, teacher, operations officer afloat, case management social worker)? Give summary @ -Dr. Lr for admission Was smoking cessation discussed for >3mins.? @ -No Was critical care preformed (if so, how long)? @ -No Were there social determinants of health that impacted care today? How? (Homelessness, low income, unemployed, alcoholism, drug addiction, transportation, low edu. Level, literacy, decrease access to med. care, snf, rehab)? @ -No Was there de-escalation of care discussed even if they declined (Discuss DNR or withdrawal of care, Hospice)? DNR status @ -No What co-morbidities impacted this encounter? (DM, HTN, Smoking, COPD, CAD, Cancer, CVA, ARF, Chemo, Hep., AIDS, mental health diagnosis, sleep apnea, morbid obesity)? @ -None Was patient admitted / discharged? Hospital course, mention meds given and r oute, prescriptions, significant lab abnormalities, going to OR and other pertinent info. @ -Admitted patient's found to have possible early developing abscess status post appendectomy. Patient will continue IV antibiotics, reevaluation. Undiagnosed new problem with uncertain prognosis? @ -No Drug Therapy requiring intensive monitoring for toxicity (Heparin, Nitro, Insulin, Cardizem)? @ -No Were any procedures done? @ -No Diagnosis/symptom? @ -Status post appendectomy, abscess Acute, or Chronic, or Acute on Chronic? @ -Acute Uncomplicated (without systemic symptoms) or Complicated (systemic symptoms)? @ -Complicated Side effects of treatment? @ -No Exacerbation, Progression, or Severe Exacerbation? @ -No Poses a threat to life or bodily function? How? (Chest pain, USA, MS, pneumonia, PE, COPD, DKA, ARF, appy, cholecystitis, CVA, Diverticulitis, Homicidal, Suicidal, threat to staff... and all critical care pts) @ -Yes intra-abdominal abscess possible sepsis causing endorgan failure. Disposition Clinical Impression: Status post appendectomy, Intra-abdominal abscess post-procedure Disposition: ADMITTED IP TO THIS HOSP Condition: Fair Referrals: Dar Islas MD [Primary Care Provider] - 1-2 days Time of Disposition: 23:03
[2024-06-18] MEDS: PIPERACILLIN-TAZOBACTAM 3.375 GM in SODIUM CHLORIDE 0.9% 100 ML IVPB SCH (23:32)
[2024-06-18] MEDS: SODIUM CHLORIDE 0.9% 1,000 ML IV SCH (23:34)
[2024-06-18] MEDS: ONDANSETRON 4 MG/2 ML VIAL IVP PRN (23:34)
[2024-06-18 23:41] LABS: Basophils # (A) 0.1 k/uL (0-0.2); Basophils % (A) 1 %; Eosinophils # (A) 0.3 k/uL (0-0.7); Eosinophils % (A) 3 %; HGB 13.4 gm/dL (13.0-17.5); Lymphocytes # (A) 1.6 k/uL (1.0-4.8); Lymphocytes % (A) 18 %; MCH 30.7 pg (25.0-35.0); MCHC 32.7 g/dL (31.0-37.0); MCV 93.8 fL (80.0-100.0); Mean Platelet Volume 7.4; Monocytes % (A) 11 %; Neutrophils # (A) 5.7 k/uL (1.3-7.7); Neutrophils % (A) 64 %; Platelet Count 474 k/uL (150-450); RBC 4.38 m/uL (4.30-5.90); RDW 12.9 % (11.5-15.5)
[2024-06-19 00:05] LABS: ALT 73 U/L (4-49); AST 29 U/L (17-59); African American GFR (CKD) >90 (>60 ml/min/1.73 sqM); Albumin 3.5 g/dL (3.5-5.0); Alkaline Phosphatase 65 U/L (38-126); Anion Gap 10 mmol/L; Blood Urea Nitrogen 12 mg/dL (9-20); Calcium 8.9 mg/dL (8.4-10.2); Carbon Dioxide 21 mmol/L (22-30); Chloride 106 mmol/L (98-107); Glucose 118 mg/dL (74-99); Non-African American GFR(CKD) >90 (>60 ml/min/1.73 sqM); Potassium 4.3 mmol/L (3.5-5.1); Sodium 137 mmol/L (137-145); Total Bilirubin 0.4 mg/dL (0.2-1.3); Total Protein 6.1 g/dL (6.3-8.2)
[2024-06-19] MEDS: HYDROcodone/APAP 5-325MG 1 EACH TAB PO PRN (04:57)
[2024-06-19] MEDS: IOPAMIDOL CONTRAST (ORAL USE) VIAL PO PRN (07:56)
--- NOTE | 2024-06-19 10:44 | P.GSHP ---
History of Present Illness H&P Date: 06/19/24 CHIEF COMPLAINT: Abdominal pain HISTORY OF PRESENT ILLNESS: This is a 53-year-old male who presented to hospital with complaints of right lower quadrant abdominal pain. Patient had recent laparoscopic appendectomy 7 days ago. Patient reports initially he had been doing well after surgery. Over the last 3 days patient noted an increase in the right lower quadrant abdominal pain. Patient reports the pain is very sharp. Pain was worse after eating. On Monday he had multiple episodes of diarrhea. His pain continued to worsen he went to [facility] and had a CAT scan completed. Results reported loculated 3 or 4 cm air/gas collection at the appendectomy site questionable developing abscess. Patient was transferred to [facility] for surgical evaluation. Patient denies any fever chills or sweats. PAST MEDICAL HISTORY: See below PAST SURGICAL HISTORY: See below MEDICATIONS: See below ALLERGIES: See below SOCIAL HISTORY: No illicit drug use. REVIEW OF SYSTEMS: CONSTITUTIONAL: Denies fever or chills. HEENT: Denies blurred vision, vision changes, or eye pain. Denies hemoptysis CARDIOVASCULAR: Denies chest pain or pressure. RESPIRATORY: No shortness of breath. GASTROINTESTINAL: See HPI for pertinent findings HEMATOLOGIC: Denies bleeding disorders. GENITOURINARY: Denies any blood in urine or increased urinary frequency. SKIN: Denies pruitis. Denies rash. PHYSICAL EXAM: VITAL SIGNS: Reviewed GENERAL: Well-developed in no acute distress. HEENT: No sclera icterus. Extraocular movements grossly intact. Moist buccal mucosa. Head is atraumatic, normocephalic. No nasal drainage. ABDOMEN: Soft. Obese. Nondistended. Tenderness with palpation to the right lower quadrant. Incision sites are healing and are clean dry and intact. No rebound or guarding noted. NEUROLOGIC: Alert and oriented. Cranial nerves II through XII grossly intact. LABORATORY DATA: WBC is 9.0 Hgb 13.4 platelets 474 Sodium 137 potassium is 4.3 creatinine 0.57 IMAGING: CT scan from [facility] reports loculated 3 to 4 cm air/gas collection at the appendectomy site question developing abscess. Punctate gallstone. New right lower lobe atelectasis. ASSESSMENT: 1. Right lower quadrant abdominal pain with concerns of possible developing abscess on CT 2. Status post laparoscopic appendectomy on 06/12/2024 PLAN: -CT scan abdomen pelvis with oral and IV contrast ordered for further evaluation of possible developing abscess -Continue antibiotics -Infectious disease consulted -Continue pain management -Continue clear liquid diet Physician Water Filterer note has been reviewed by physician. Signing provider agrees with the documented findings, assessment, and plan of care. Attestation Patient seen and examined at bedside. Status post laparoscopic appendectomy with increased abdominal pain over the past couple of days. He states initially he took some Rolaids and had improvement but then began having worsening abdominal pain. When he presented to the emergency department at [facility] CT of the abdomen pelvis was performed with concern of developing abscess. Secondary to this he was transferred to this facility. Currently, patient states he is having pain in the right lower quadrant. No leukocytosis. No febrile episodes. Repeat CT of the abdomen and pelvis to be ordered with oral and IV contrast as images from [facility] are not available. May Lr DO Past Medical History Past Medical History: Hyperlipidemia, Hypertension Additional Past Medical History / Comment(s): DJD in back,bursitis bilateral knees History of Any Multi-Drug Resistant Organisms: None Reported Past Surgical History: Orthopedic Surgery Additional Past Surgical History / Comment(s): Vasectomy Past Anesthesia/Blood Transfusion Reactions: No Reported Reaction Past Psychological History: No Psychological Hx Reported Smoking Status: Never smoker Past Alcohol Use History: Occasional Past Drug Use History: Marijuana - Past Family History Father Family Medical History: Congestive Heart Failure (CHF), COPD, Diabetes Mellitus Additional Family Medical History / Comment(s): cabbag Mother Family Medical History: Cancer Additional Family Medical History / Comment(s): colon cancer at age 53. Medications and Allergies Home Medications Medication Instructions Recorded Confirmed Type Celecoxib [CeleBREX] 100 mg PO BID PRN 06/12/24 06/19/24 History Gabapentin 300 mg PO HS 06/12/24 06/19/24 History Metoprolol Tartrate 25 mg PO BID 06/12/24 06/19/24 History Naproxen Sodium [Aleve] 220 mg PO DAILY PRN 06/12/24 06/19/24 History Rosuvastatin [Crestor] 20 mg PO HS 06/12/24 06/19/24 History HYDROcodone/APAP 5-325MG [[place] 1 tab PO Q6HR PRN 3 Days #12 tab 06/13/24 06/19/24 Rx 5-325] Lactulose [Cephulac] 10 gm PO DAILY PRN #300 ml 06/13/24 06/19/24 Rx Allergies Allergy/AdvReac Type Severity Reaction Status Date / Time ceftriaxone [From Rocephin] AdvReac chills & Verified 06/19/24 12:41 shaky Surgical - Exam Osteopathic Statement: *. No significant issues noted on an osteopathic structural exam other than those noted in the History and Physical/Consult. Vital Signs Temp Pulse Resp BP Pulse Ox 97.8 F 98 16 167/96 97 06/18/24 23:02 06/18/24 23:02 06/18/24 23:02 06/18/24 23:02 06/18/24 23:02 Results - Labs 06/18/24 23:15 06/18/24 23:15 Abnormal Lab Results - Last 24 Hours (Table) 06/18/24 06/18/24 Range/Units 23:15 23:15 Plt Count 474 H (150-450) k/uL Carbon Dioxide 21 L (22-30) mmol/L Creatinine 0.57 L (0.66-1.25) mg/dL Glucose 118 H (74-99) mg/dL ALT 73 H (4-49) U/L Total Protein 6.1 L (6.3-8.2) g/dL Diabetes panel 06/18/24 Range/Units 23:15 Sodium 137 (137-145) mmol/L Potassium 4.3 (3.5-5.1) mmol/L Chloride 106 (98-107) mmol/L Carbon Dioxide 21 L (22-30) mmol/L BUN 12 (9-20) mg/dL Creatinine 0.57 L (0.66-1.25) mg/dL Glucose 118 H (74-99) mg/dL Calcium 8.9 (8.4-10.2) mg/dL AST 29 (17-59) U/L ALT 73 H (4-49) U/L Alkaline Phosphatase 65 (38-126) U/L Total Protein 6.1 L (6.3-8.2) g/dL Albumin 3.5 (3.5-5.0) g/dL Calcium panel 06/18/24 Range/Units 23:15 Calcium 8.9 (8.4-10.2) mg/dL Albumin 3.5 (3.5-5.0) g/dL Pituitary panel 06/18/24 Range/Units 23:15 Sodium 137 (137-145) mmol/L Potassium 4.3 (3.5-5.1) mmol/L Chloride 106 (98-107) mmol/L Carbon Dioxide 21 L (22-30) mmol/L BUN 12 (9-20) mg/dL Creatinine 0.57 L (0.66-1.25) mg/dL Glucose 118 H (74-99) mg/dL Calcium 8.9 (8.4-10.2) mg/dL Adrenal panel 06/18/24 Range/Units 23:15 Sodium 137 (137-145) mmol/L Potassium 4.3 (3.5-5.1) mmol/L Chloride 106 (98-107) mmol/L Carbon Dioxide 21 L (22-30) mmol/L BUN 12 (9-20) mg/dL Creatinine 0.57 L (0.66-1.25) mg/dL Glucose 118 H (74-99) mg/dL Calcium 8.9 (8.4-10.2) mg/dL Total Bilirubin 0.4 (0.2-1.3) mg/dL AST 29 (17-59) U/L ALT 73 H (4-49) U/L Alkaline Phosphatase 65 (38-126) U/L Total Protein 6.1 L (6.3-8.2) g/dL Albumin 3.5 (3.5-5.0) g/dL
[2024-06-19] MEDS: METOPROLOL TARTRATE 25 MG TAB PO SCH (10:52)
--- NOTE | 2024-06-19 13:00 | CT ---
EXAMINATION TYPE: CT abdomen pelvis w con DATE OF EXAM: 06/19/2024 9:51 AM COMPARISON: 06/12/2024 CLINICAL INDICATION: Male, 53 years old with history of RLQ pain, possible abscess, ABD PAIN TECHNIQUE: Axial images were obtained from above the diaphragm to the pubic rami in the axial plane a t 5 mm thick sections. Reconstructed images are reviewed on the computer in the coronal plane. CONTRAST: 100 mL of Isovue 300. Study performed with Oral Contrast DLP: 4355 mGycm, Automated exposure control for dose reduction was used. FINDINGS: Limited CT sections are obtained the lung bases. The lung bases are clear. CT ABDOMEN: Liver: Normal Spleen: Normal Pancreas: Normal Adrenal glands: The adrenal glands are normal. Gallbladder: Normal Kidneys: No masses are evident. No hydronephrosis is present. No cysts are present. Delayed images were obtained through the kidneys, which remain unremarkable. Aorta: Normal Inferior vena cava: Normal. CT PELVIS: There are some mild inflammatory changes in the right lower quadrant adjacent to cecum. No underlying abscess is identified. The appendix is not identified. Scattered diverticuli are present within the sigmoid colon. No acute diverticulitis evident. There are loops of bowel which are incompletely diste nded or lack oral contrast limiting their evaluation. Appendix: Not identified. No suspicious dilated structure inflammatory changes evident Urinary bladder: Normal. Genitourinary structures: Prostate is prominent Osseous structures: No suspicious lytic or sclerotic lesions. IMPRESSION: 1. There are some inflammatory changes adjacent to the left proximal ascending colon. No underlying abscess identified. 2. Sigmoid diverticulosis without acute diverticulitis [facility], , 06/19/2024 12:57 PM
[2024-06-19] MEDS: GABAPENTIN 300 MG CAP PO SCH (20:57)
[2024-06-19] MEDS: DOCUSATE 100 MG CAP PO SCH (20:57)
[2024-06-19] MEDS: ATORVASTATIN 40 MG TAB PO SCH (20:57)
--- NOTE | 2024-06-19 22:08 | P.CONS ---
History of Present Illness - Reason for Consult Consult date: 06/19/24 Intra-abdominal abscess Requesting physician: Payam Jang - Chief Complaint Abdominal pain x few days - History of Present Illness Patient is a 53-year-old male with a past medical history significant for hypertension hyperlipidemia recent admission to this facility with acute appendicitis in this patient who is status post laparoscopic appendectomy about 7 days ago and the patient was subsequently discharged home on a 4-day course of oral Augmentin with the patient has completed patient presenting back to the hospital for evaluation increasing pain to the right lower quadrant area over the last 3 days patient described the pain to be sharp moderate to severe intensity almost 10 out of 10 without any radiation to have some nausea but no vomiting. The patient did have some diarrhea on Monday that have subsequently resolved patient did went to [facility] with the patient did have CT abdominal pelvis there was concern for possible developing abscess to the right lower quadrant area for the patient had been transferred to [facility] for further evaluation on presentation to the hospital patient was afebrile and no fever have been recorded subsequently patient was nontachycardic hypotensive or hypoxic patient did have a white count of 9.0 creatinine 0.57 electrolytes are normal ALT slightly elevated patient was started on Zosyn infectious disease was consulted for intra-abdominal abscess CT completed this morning results are pending Review of Systems Positive point and negatives has been mentioned in the HPI, complete review of systems was performed and all other systems are negative Past Medical History Past Medical History: Hyperlipidemia, Hypertension Additional Past Medical History / Comment(s): 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,bursitis bilateral knees History of Any Multi-Drug Resistant Organisms: None Reported Past Surgical History: Orthopedic Surgery Additional Past Surgical History / Comment(s): Vasectomy Past Anesthesia/Blood Transfusion Reactions: No Reported Reaction Past Psychological History: No Psychological Hx Reported Smoking Status: Never smoker Past Alcohol Use History: Occasional Past Drug Use History: Marijuana - Past Family History Father Family Medical History: Congestive Heart Failure (CHF), COPD, Diabetes Mellitus Additional Family Medical History / Comment(s): cabbag Mother Family Medical History: Cancer Additional Family Medical History / Comment(s): colon cancer at age 53. Medications and Allergies Home Medications Medication Instructions Recorded Confirmed Type Celecoxib [CeleBREX] 100 mg PO BID PRN 06/12/24 06/19/24 History Gabapentin 300 mg PO HS 06/12/24 06/19/24 History Metoprolol Tartrate 25 mg PO BID 06/12/24 06/19/24 History Naproxen Sodium [Aleve] 220 mg PO DAILY PRN 06/12/24 06/19/24 History Rosuvastatin [Crestor] 20 mg PO HS 06/12/24 06/19/24 History HYDROcodone/APAP 5-325MG [[place] 1 tab PO Q6HR PRN 3 Days #12 tab 06/13/24 06/19/24 Rx 5-325] Lactulose [Cephulac] 10 gm PO DAILY PRN #300 ml 06/13/24 06/19/24 Rx Allergies Allergy/AdvReac Type Severity Reaction Status Date / Time ceftriaxone [From Rocephin] AdvReac chills & Verified 06/19/24 12:41 shaky Physical Exam Vitals: Vital Signs Temp Pulse Pulse Resp BP BP Pulse Ox 06/19/24 07:15 98.2 F 92 16 143/83 95 06/19/24 01:11 98.2 F 89 18 138/87 96 06/19/24 00:29 98.4 F 96 16 151/97 93 L 06/18/24 23:15 98.2 F 105 H 16 140/88 94 L 06/18/24 23:02 97.8 F 98 16 167/96 97 Intake and Output 06/18/24 06/19/24 06/19/24 22:59 06:59 14:59 Other: Voiding Method Toilet Urinal # Voids 0 Weight 158.757 kg GENERAL DESCRIPTION: Middle-aged male lying in bed, no distress. No tachypnea or accessory muscle of respiration use. HEENT: Shows Pallor , no scleral icterus. Oral mucous membrane is dry. NECK: Trachea central, no thyromegaly. LUNGS: Unlabored breathing. Clear to auscultation anteriorly. No wheeze or crackle. HEART: S1, S2, regular rate and rhythm. No loud murmur ABDOMEN: Soft, mild distention and tenderness EXTREMITIES: No edema of feet. SKIN: No rash, no masses palpable. NEUROLOGICAL: The patient is awake, alert, oriented x3, mood and affect normal. Results CBC & Chem 7: 06/18/24 23:15 06/18/24 23:15 Labs: Abnormal Lab Results - Last 24 Hours (Table) 06/18/24 06/18/24 Range/Units 23:15 23:15 Plt Count 474 H (150-450) k/uL Carbon Dioxide 21 L (22-30) mmol/L Creatinine 0.57 L (0.66-1.25) mg/dL Glucose 118 H (74-99) mg/dL ALT 73 H (4-49) U/L Total Protein 6.1 L (6.3-8.2) g/dL Assessment and Plan (1) Intra-abdominal abscess Current Visit: Yes Status: Acute Code(s): K65.1 - PERITONEAL ABSCESS SNOMED Code(s): 81228508 Plan: 1patient presented to hospital with abdominal pain in this patient who recently did have laparoscopic appendectomy with outside hospital CT suspicious for possible developing right lower quadrant abscess we will need to cover for enteric gram-negative both aerobes and anaerobes 2-we will follow-up on the CT results and possible CT-guided aspiration fluid should be sent for the culture 3-we will empirically covered with Zosyn while waiting for the workup to be completed Question concern answered We will follow on clinical condition and cultures to further adjust medication if needed Thank you for this consultation we will follow the patient along with you Dictation was produced using [employer] dictation software. please excuse any grammatical, word or spelling errors. Time with Patient: Greater than 30
[2024-06-20 04:42] LABS: Basophils # (A) 0.1 k/uL (0-0.2); Basophils % (A) 1 %; Eosinophils # (A) 0.2 k/uL (0-0.7); Eosinophils % (A) 3 %; HCT 41.2 % (39.0-53.0); HGB 13.4 gm/dL (13.0-17.5); Lymphocytes # (A) 1.5 k/uL (1.0-4.8); Lymphocytes % (A) 19 %; MCH 30.5 pg (25.0-35.0); MCHC 32.5 g/dL (31.0-37.0); MCV 93.9 fL (80.0-100.0); Mean Platelet Volume 7.6; Monocytes # (A) 0.7 k/uL (0-1.0); Monocytes % (A) 9 %; Neutrophils % (A) 65 %; Platelet Count 513 k/uL (150-450); RBC 4.39 m/uL (4.30-5.90); RDW 13.1 % (11.5-15.5); WBC 7.7 k/uL (3.8-10.6)
[2024-06-20 05:01] LABS: African American GFR (CKD) >90 (>60 ml/min/1.73 sqM); Anion Gap 8 mmol/L; Blood Urea Nitrogen 10 mg/dL (9-20); Calcium 9.3 mg/dL (8.4-10.2); Carbon Dioxide 23 mmol/L (22-30); Chloride 106 mmol/L (98-107); Glucose 141 mg/dL (74-99); Non-African American GFR(CKD) >90 (>60 ml/min/1.73 sqM); Potassium 4.7 mmol/L (3.5-5.1); Sodium 137 mmol/L (137-145)
--- NOTE | 2024-06-20 12:24 | P.PN ---
Subjective Progress Note Date: 06/20/24 SURGICAL PROGRESS NOTE CHIEF COMPLAINT: Abdominal pain HISTORY OF PRESENT ILLNESS: Patient reporting that his pain is improving. He did have episode of diarrhea this morning. Denies any nausea or vomiting. No evidence of abscess on CAT scan. CT scan results report some inflammatory changes adjacent to the left proximal ascending colon. No underlying abscess identified. Sigmoid diverticulosis without acute diverticulitis. Afebrile. WBC 7.7 platelets 513 hemoglobin 13.4 PHYSICAL EXAM: VITAL SIGNS: Reviewed. GENERAL: Well-developed in no acute distress. ABDOMEN: Soft. obese. Nondistended. Tenderness with palpation right lower quadrant NEUROLOGIC: Alert and oriented. Cranial nerves II through XII grossly intact. ASSESSMENT: 1. Right lower quadrant abdominal pain. CT scan reporting inflammatory changes adjacent to the left proximal ascending colon. No evidence of abscess. 2. Status post laparoscopic appendectomy on 06/12/2024 3. Diverticulosis with no evidence of diverticulitis PLAN: -Continue full liquid diet -Continue IV antibiotics -Continue to monitor -Encourage patient to increase activity level -Recommended Benefiber OTC due to findings of diverticulosis on CT scan Physician Clinical Trainer note has been reviewed by physician. Signing provider agrees with the documented findings, assessment, and plan of care. Objective - Vital Signs Vital signs: Vital Signs Temp 98.6 F 06/20/24 06:53 Pulse 76 06/20/24 06:53 Resp 18 06/20/24 06:53 BP 149/90 06/20/24 06:53 Pulse Ox 96 06/20/24 06:53 FiO2 Intake & Output 06/19/24 06/20/24 06/20/24 18:59 06:59 18:59 Other: Voiding Method Toilet Urinal # Voids 4 1 - Labs CBC & Chem 7: 06/20/24 03:46 06/20/24 03:46 Labs: Abnormal Lab Results - Last 24 Hours (Table) 06/20/24 06/20/24 Range/Units 03:46 03:46 Plt Count 513 H (150-450) k/uL Glucose 141 H (74-99) mg/dL C-Reactive Protein 3.0 H (<1.0) mg/dL Assessment and Plan Assessment: ct abd/pelv not concerning, tolerating full liquid diet. Possible discharge monday/monday. Advance diet in am. Time with Patient: Less than 30
--- NOTE | 2024-06-20 15:36 | P.PN ---
Subjective Progress Note Date: 06/20/24 Principal diagnosis: Reason for follow-up is post appendicitis/appendectomy phlegmon Patient is a 80-year-old female with a past medical history coronary disease heart failure with reflux hypertension hyperlipidemia osteoarthritis end-stage renal disease on peritoneal dialysis patient has been brought to the hospital concerning for right lower quadrant abdominal pain with outside hospital CT concerning for possible abscess. On today's evaluation that is 06/20/2024,the patient remains to be afebrile, patient is on room air not requiring supplemental oxygen and denies any shortness of breath no chest pain or cough.Patient denies having any nausea or vomiting, patient abdominal pain has decreased in intensity. Patient white count 7.7, creatinine 0.[address] abdominal pelvis did not show any evidence of intra-abdominal abscess Objective - Vital Signs Vital signs: Vital Signs Temp 98.6 F 06/20/24 06:53 Pulse 76 06/20/24 06:53 Resp 18 06/20/24 06:53 BP 149/90 06/20/24 06:53 Pulse Ox 96 06/20/24 06:53 FiO2 Intake & Output 06/19/24 06/20/24 06/20/24 18:59 06:59 18:59 Other: Voiding Method Toilet Urinal # Voids 4 1 - Exam GENERAL DESCRIPTION: Middle-age male lying in bed in no distress RESPIRATORY SYSTEM: Unlabored breathing , decreased breath sounds at bases HEART: S1 S2 regular rate and rhythm , ABDOMEN: Soft , mild tenderness EXTREMITIES: No edema feet - Labs CBC & Chem 7: 06/20/24 03:46 06/20/24 03:46 Labs: Abnormal Lab Results - Last 24 Hours (Table) 06/20/24 06/20/24 Range/Units 03:46 03:46 Plt Count 513 H (150-450) k/uL Glucose 141 H (74-99) mg/dL C-Reactive Protein 3.0 H (<1.0) mg/dL Assessment and Plan (1) Intra-abdominal abscess Current Visit: Yes Status: Acute Code(s): K65.1 - PERITONEAL ABSCESS SNOMED Code(s): 65034684 Plan: 1patient presented to hospital with abdominal pain in this patient who recently did have laparoscopic appendectomy with outside hospital CT suspicious for possible developing right lower quadrant abscess we will need to cover for enteric gram-negative both aerobes and anaerobes 2-patient did have CT abdominal pelvis did not show any intra-abdominal abscess or need for drainage 3-patient will be treated with Zosyn while waiting for condition to improve before transition to oral antibiotic Dictation was produced using [employer] dictation software. please excuse any grammatical, word or spelling errors. Time with Patient: Less than 30
[2024-06-21 14:00] VITALS: BP 135/87; PULSE 64; RESP 18; TEMP 98.3
--- NOTE | 2024-06-21 14:16 | P.DS ---
Providers Date of admission: 06/18/24 23:11 Expected date of discharge: 06/21/24 Attending physician: May Lr DO Consults: 06/18/24 23:03 Consult Physician Routine Consulting Provider: Clay Leblanc Consult Reason/Comments: Intra-abdominal abscess Do you want consulting provider notified?: Yes Primary care physician: Dar Islas MD Hospital Course: Discharge diagnosis 1. Right lower quadrant abdominal pain. CT scan reporting inflammatory changes adjacent to the left proximal ascending colon. No evidence of abscess. 2. Status post laparoscopic appendectomy on 06/12/2024 3. Diverticulosis with no evidence of diverticulitis Hospital course This is a 53-year-old male who presented to hospital with complaints of right lower quadrant abdominal pain. Patient had recent laparoscopic appendectomy on 06/12/2024. Patient reports initially he had been doing well after surgery. Patient presented back to the hospital with complaints of right lower quadrant abdominal pain. Had initially been doing well after surgery. He went to [place] and had a CAT scan completed. Results reported loculated 3 or 4 cm air/gas collection at the appendectomy site questionable developing abscess. A repeat CT scan abdomen pelvis was completed here at [facility] with results reporting inflammatory changes adjacent to the left proximal ascending colon. No underlying abscess identified. Sigmoid diverticulosis without acute diverticulitis. Patient was started on antibiotics. His pain is improved. He is tolerating diet. He is afebrile. His white count has remained normal. Patient will continue 10 more days of oral antibiotics as recommended per infectious disease. Patient is stable for discharge. Please refer to chart for any further details. Physician Field Sales Specialist note has been reviewed by physician. Signing provider agrees with the documented findings, assessment, and plan of care. Patient Condition at Discharge: Stable Plan - Discharge Summary Discharge Rx Participant: Yes New Discharge Prescriptions: New metroNIDAZOLE [Flagyl] 500 mg PO TID #30 tab HYDROcodone/APAP 5-325MG [[place] 5-325] 1 tab PO Q6HR PRN 3 Days #12 tab PRN Reason: Pain cefuroxime axetiL [Ceftin] 500 mg PO BID #20 tab Continue Rosuvastatin [Crestor] 20 mg PO HS Gabapentin 300 mg PO HS Naproxen Sodium [Aleve] 220 mg PO DAILY PRN PRN Reason: Pain Celecoxib [CeleBREX] 100 mg PO BID PRN PRN Reason: Pain Metoprolol Tartrate 25 mg PO BID Lactulose [Cephulac] 10 gm PO DAILY PRN #300 ml PRN Reason: Constipation Discontinued HYDROcodone/APAP 5-325MG [[place] 5-325] 1 tab PO Q6HR PRN 3 Days #12 tab PRN Reason: Pain Discharge Medication List Celecoxib [CeleBREX] 100 mg PO BID PRN 06/12/24 [History] Gabapentin 300 mg PO HS 06/12/24 [History] Metoprolol Tartrate 25 mg PO BID 06/12/24 [History] Naproxen Sodium [Aleve] 220 mg PO DAILY PRN 06/12/24 [History] Rosuvastatin [Crestor] 20 mg PO HS 06/12/24 [History] Lactulose [Cephulac] 10 gm PO DAILY PRN #300 ml 06/13/24 [Rx] HYDROcodone/APAP 5-325MG [[place] 5-325] 1 tab PO Q6HR PRN 3 Days #12 tab 06/21/24 [Rx] cefuroxime axetiL [Ceftin] 500 mg PO BID #20 tab 06/21/24 [Rx] metroNIDAZOLE [Flagyl] 500 mg PO TID #30 tab 06/21/24 [Rx] Follow up Appointment(s)/Referral(s): Tom Warren DO [Doctor of Osteopathic Medicine] - 06/25/24 9:45 am Dar Islas MD [Primary Care Provider] - 1-2 days Discharge Disposition: HOME SELF-CARE
--- NOTE | 2024-06-21 15:30 | P.PN ---
Subjective Progress Note Date: 06/21/24 Principal diagnosis: Reason for follow-up is post appendicitis/appendectomy phlegmon Patient is a 80-year-old female with a past medical history coronary disease heart failure with reflux hypertension hyperlipidemia osteoarthritis end-stage renal disease on peritoneal dialysis patient has been brought to the hospital concerning for right lower quadrant abdominal pain with outside hospital CT concerning for possible abscess. On today's evaluation that is 06/21/2024, the patient continues to be afebrile, the patient is on room air and breathing comfortably, the Pt denies having any chest pain or cough, the patient did have improvement in his abdominal pain no nausea vomiting did have some soft bowel movement. Patient did not have lab draw today. Objective - Vital Signs Vital signs: Vital Signs Temp 98.7 F 06/21/24 06:56 Pulse 76 06/21/24 06:56 Resp 16 06/21/24 06:56 BP 151/93 06/21/24 06:56 Pulse Ox 94 L 06/21/24 06:56 FiO2 Intake & Output 06/20/24 06/21/24 06/21/24 18:59 06:59 18:59 Other: # Voids 6 2 # Bowel Movements 3 - Exam GENERAL DESCRIPTION: Middle-age male lying in bed in no distress RESPIRATORY SYSTEM: Unlabored breathing , decreased breath sounds at bases HEART: S1 S2 regular rate and rhythm , ABDOMEN: Soft , mild tenderness EXTREMITIES: No edema feet - Labs CBC & Chem 7: 06/20/24 03:46 06/20/24 03:46 Assessment and Plan (1) Intra-abdominal abscess Current Visit: Yes Status: Acute Code(s): K65.1 - PERITONEAL ABSCESS SNOMED Code(s): 11863549 Plan: 1patient presented to hospital with abdominal pain in this patient who recently did have laparoscopic appendectomy with outside hospital CT suspicious for possible developing right lower quadrant abscess we will need to cover for enteric gram-negative both aerobes and anaerobes 2-patient did have CT abdominal pelvis did not show any intra-abdominal abscess or need for drainage 3-patient did have clinical improvement with Zosyn we will plan to finish therapy with a 10-day course of oral Ceftin and Flagyl discussed with the surgical team on the floor Dictation was produced using [employer] dictation software. please excuse any grammatical, word or spelling errors. Time with Patient: Less than 30
== END 2024-06-21 16:10 | disposition home or self-care (01) ==
LOC: EC 22:48 → 4SSUR 23:11 → INTOOBSV 23:11 → 4SSUR 23:56
PROVIDERS: ADMIT Surgery; ATTEND Surgery
DX: K57.30 Diverticulosis of large intestine without perforation or abscess without bleeding (principal); E78.5 Hyperlipidemia, unspecified; I13.2 Hypertensive heart and chronic kidney disease with heart failure and with stage 5 chronic kidney disease, or end stage renal disease; I50.9 Heart failure, unspecified; N18.6 End stage renal disease; K21.9 Gastro-esophageal reflux disease without esophagitis; Z79.1 Long term (current) use of non-steroidal anti-inflammatories (NSAID); Z99.2 Dependence on renal dialysis; Z79.899 Other long term (current) drug therapy; Z88.1 Allergy status to other antibiotic agents
CPT/HCPCS: 96376; 96361; 96366 ×4; 96365; 96375; 99284; 80053; 80048; 85025 ×2; 86140; 74177; G0378 ×4; J2543 ×4; J2405 ×2; Q9967